=== PATIENT | male | born 1990 | race Caucasian/White ===

== ENCOUNTER 2017-05-23 13:42 | Emergency (ER) | payer OTHER ==
[2017-05-23 14:01] VITALS: BP 136/88
[2017-05-23] MEDS ORDERED: Amoxicillin/Clavulanate K 875-125 MG Tab PO ONE (14:41)
[2017-05-23] MEDS ORDERED: Lidocaine 1% 10 ML MDV INJECT ONE (14:44)
--- NOTE | 2017-05-23 14:48 | EDM.PDOC ---
ED HPI GENERAL MEDICAL PROBLEM - General Chief Complaint: Laceration Stated Complaint: R FOOT LAC/POSS INFECTION Time Seen by Provider: 05/23/17 14:24 Source of Information: Reports: Patient History Limitations: Reports: No Limitations - History of Present Illness INITIAL COMMENTS - FREE TEXT/NARRATIVE: Patient is a 26 year old male who presents with concerns of having infection to the sole of the right foot at the base of the third toe. Patient states yesterday while walking [place] a [place] at the [place] he stepped on something causing a small laceration to his foot. States bleeding was minimal. States this morning experience increasing pain, swelling, and clear yellowish drainage. No increased redness noted. He is concerned he may have an infection. He has a previous history of similar symptoms approximately 2 years ago requiring hospitalization. He denies any history of MRSA. Tetanus status is up-to-date. Has no additional past medical history is currently taking no medications. Surgical history noncontributory. Feet Pain Score (Numeric/FACES): 6 - Related Data Allergies Allergy/AdvReac Type Severity Reaction Status Date / Time No Known Allergies Allergy Verified 05/23/17 13:56 Home Meds: Home Meds Hydrocodone/Acetaminophen [Hydrocodone-Acetaminophen 5-325] 1 each PO Q6H PRN # 5 tablet 09/08/14 [Rx] Amoxicillin/Clavulanate K [Augmentin 875 MG/125 MG] 1 tab PO Q12HR #14 tablet [Rx] Past Medical History - Past Health History Medical/Surgical History: Denies Medical/Surgical History Social & Family History - Tobacco Use Smoking Status *Q: Current Some Day Smoker Years of Tobacco use: 10 Packs/Tins Daily: 0.1 - Caffeine Use Caffeine Use: Reports: Energy Drinks - Alcohol Use Days Per Week of Alcohol Use: 2 Number of Drinks Per Day: 4 Total Drinks Per Week: 8 - Recreational Drug Use Recreational Drug Use: No Drug Use in Last 12 Months: No ED ROS GENERAL - Review of Systems Review Of Systems: See Below Constitutional: Denies: Fever, Chills, Malaise Musculoskeletal: Reports: Foot Pain Skin: Reports: Wound. Denies: Erythema ED EXAM, SKIN/RASH Exam: See Below Exam Limited By: No Limitations General Appearance: Alert, WD/WN, No Apparent Distress Ears: Hearing Grossly Normal Nose: Normal Inspection Throat/Mouth: Normal Voice, No Airway Compromise Neck: Normal Inspection, Supple Respiratory/Chest: No Respiratory Distress, Lungs Clear, Normal Breath Sounds, No Accessory Muscle Use Cardiovascular: Normal Peripheral Pulses, Regular Rate, Rhythm Extremities: Other (Right foot: Appears to be a 0.5 cm old blister to the base of his third toe. Some pain with palpation. Minimal swelling. No redness. No purulent drainage noted. Patient has what appears to be athlete's foot in between his toes. This would be an avenue for infection.) Neurological: Alert, Oriented, CN II-XII Intact, Normal Cognition, No Motor/ Sensory Deficits Psychiatric: Normal Affect, Normal Mood Skin: Warm, Dry, Intact, Normal Color Course - Vital Signs Last Recorded V/S: Last Vital Signs Temp 97.4 F 05/23/17 13:57 Pulse 82 05/23/17 13:57 Resp 16 05/23/17 13:57 BP 136/88 05/23/17 13:57 Pulse Ox 98 05/23/17 13:57 - Orders/Labs/Meds Meds: Medications Discontinued Medications Generic Name Dose Route Start Last Admin Trade Name Rasheedq PRN Reason Stop Dose Admin Amoxicillin/Clavulanate Potassium 1 tab 05/23/17 14:41 05/23/17 14:51 Augmentin 875 Mg/125 Mg PO 05/23/17 14:42 1 tab ONETIME ONE Administration Lidocaine HCl 10 ml 05/23/17 14:44 05/23/17 14:51 Xylocaine 1% INJECT 05/23/17 14:45 10 ml ONETIME ONE Administration - Re-Assessments/Exams Free Text/Narrative Re-Assessment/Exam: Tetanus status is up-to-date. Ordered Augmentin 875 one tab by mouth. Also ordered lidocaine 1%. Will necessitate area and remove the remainder of skin present. Unlikely any foreign objects are present. 05/23/17 15:13 necessitate area with 1% lidocaine. Callus was removed with no foreign objects, puncture wounds present. Nursing staff place dressing with bacitracin to the affected area. Patient discharged home with instructions as document. Departure - Departure Time of Disposition: 15:14 Disposition: Home, Self-Care 01 Condition: Good Clinical Impression: Foot abrasion, infected Qualifiers: Encounter type: initial encounter Laterality: right Qualified Code(s): S90.811A - Abrasion, right foot, initial encounter - Discharge Information Prescriptions: Amoxicillin/Clavulanate K [Augmentin 875 MG/125 MG] 1 tab PO Q12HR #14 tablet Instructions: Puncture Wound, [id number] Referrals: PCP,None [Primary Care Provider] - Forms: ED Department Discharge Additional Instructions: Take full course of antibiotics as prescribed. Soak the foot 3-4 times daily in Epsom salts baths. Elevate when able to reduce swelling and pain. Take Tylenol and ibuprofen in alternating fashion for pain. Cleanse site twice daily with soap and water, pat dry, reapply Triple Antibiotic ointment, and dressing. Keep area clean and dry. While work she just change her socks readily and reapplying her Potter to mitigate at the toilet. No walking barefoot until wound has healed. No soaking wound and refer/duron water, hot tub water, pool, or bath water. Follow-up with PCP as needed. Return to ED if he developed increased redness, swelling, purulent drainage, fever/chills, or any additional complaints.
== END 2017-05-23 15:25 | disposition home or self-care (01) ==
LOC: JD.ED 13:42
DX: S91.311A Laceration without foreign body, right foot, initial encounter (principal); S90.811A Abrasion, right foot, initial encounter; F17.210 Nicotine dependence, cigarettes, uncomplicated; W22.8XXA Striking against or struck by other objects, initial encounter
CPT/HCPCS: 99283; A9270; 11055

== ENCOUNTER 2018-05-07 12:54 | Emergency (ER) | payer OTHER ==
[2018-05-07 13:05] VITALS: BP 133/88
[2018-05-07] MEDS ORDERED: Acetaminophen/HYDROcodone 325-5 MG Tab PO ONE (13:31)
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
--- NOTE | 2018-05-08 13:12 | CR ---
Right shoulder: Three views of the right shoulder were obtained. Comparison: No prior right shoulder study. Acromioclavicular and glenohumeral joints appear within normal limits. No fracture, dislocation or other bony abnormality is seen. Impression: 1. No abnormality is seen on right shoulder study. Diagnostic code #1
== END 2018-05-07 14:15 | disposition home or self-care (01) ==
LOC: JD.ED 12:54
DX: S43.401A Unspecified sprain of right shoulder joint, initial encounter (principal); F17.210 Nicotine dependence, cigarettes, uncomplicated; W16.712A Jumping or diving from boat striking water surface causing other injury, initial encounter
CPT/HCPCS: 73030; 99283; A9270